=== PATIENT | male | born 1985 | race Caucasian/White ===

== ENCOUNTER 2019-01-12 19:35 | Emergency (ER) | payer OTHER ==
--- NOTE | 2019-01-12 20:06 | ED Physician Documentation ---
History of Present Illness - Stated complaint Stated Complaint: HEAD INJ/BASEBALL - Chief complaint Chief Complaint: Trauma Hd/Nk - History obtained from History obtained from: Patient, Family - History of Present Illness Timing: Prior to arrival - Additonal information Additional information: Patient is an otherwise healthy 33-year-old male presenting with his after he was accidentely struck in the head while playing softball earlier tonight. Patient was on first base and was struck by the runner. He was not wearing a helmet. Questionable loss of consciousness. Since that time, patient has complained of a headache and has otherwise been confused, amnestic to certain details, and repetitive in his questioning. Patient and deny vision burnette ges, epistaxis, intraoral trauma, neck pain, back pain, nausea, vomiting, extremity pain or injury, or other complaints. Prior to this incident, patient was at his usual state of health and without complaint. No other improving or worsening factors noted. Review of Systems Eyes: denies: Loss of vision Throat: denies: Dental pain / toothache Musculoskeletal: denies: Neck pain, Back pain Neurologic: reports: Head injury PD PAST MEDICAL HISTORY - Past Medical History Past Medical History: Yes GI: Hiatal hernia - Past Surgical History Past Surgical History: Yes - Allergies Allergies/Adverse Reactions: Allergies Allergy/AdvReac Type Severity Reaction Status Date / Time No Known Drug Allergies Allergy Verified 01/12/19 19:44 - Social History Does the pt smoke?: No Smoking Status: Never smoker Does the pt drink ETOH?: No Does the pt have substance abuse?: No - Immunizations Immunizations are current?: Yes - POLST Patient has POLST: No PD ED PE NORMAL - Vitals Vital signs reviewed: Yes - General General: Alert and oriented X 3, No acute distress, Well developed/nourished - HEENT HEENT: Atraumatic (No periorbital swelling or ecchymosis, active epistaxis, ev idence of intraoral trauma, raccoon eyes, chapman signs, facial bone instability or tenderness, contusions.), PERRL, EOMI (No nystagmus. Gross visual acuity intact.), Pharynx benign, Dentition benign - Neck Neck: No bony TTP - Cardiac Cardiac: RRR, No murmur - Respiratory Respiratory: No respiratory distress, Clear bilaterally - Abdomen Abdomen: Normal bowel sounds, Soft, Non tender, Non distended - Back Back: No spinal TTP - Derm Derm: Normal color, Warm and dry, No rash - Extremities Extremities: No deformity, No tenderness to palpate, No edema - Neuro Neuro: Alert and oriented X 3, No motor deficit, No sensory deficit - Psych Psych: Normal mood, Normal affect Results - Vitals Vitals: Vital Signs - 24 hr 01/12/19 01/12/19 19:39 21:26 Temperature 36.9 C 36.9 C Heart Rate 84 75 Respiratory 18 15 Rate Blood Pressure 125/77 132/83 H O2 Saturation 96 99 Oxygen O2 Source Room air PD MEDICAL DECISION MAKING - ED course Complexity details: reviewed results, re-evaluated patient, considered differential, d/w patient, d/w family ED course: Most concerning for closed head injury and concussion, but also considered skull fracture, intracranial injury or bleeding, facial fracture, although feel less likely. Physical exam is relatively unremarkable and do not find evidence of significant neurological deficit, trauma, or systemic illness. Have low suspici on for vertebral spinal cord injury, as well as any chest, abdominal, or other extremity trauma. Further evaluation limited to CT head and max/face, which returned unremarkable for acute pathology. Discussed results and recommendations with patient and his including concussion precautions and restrictions, return precautions, supportive cares, appropriate follow-up. Both voiced understanding and are comfortable with discharge plan. Departure - Departure Disposition: 01 Home, Self Care Clinical Impression: Concussion Condition: Good Instructions: ED Concussion, ED Head Injury Closed Follow-Up: JENNIFER LOZANO [Primary Care Provider] - Within 3 Days Comments: May use ibuprofen/Tylenol as needed for pain relief. Please apply ice to any areas of swelling. Please follow instructions and restrictions regarding concussion and closed head injury including establishing follow-up with your primary care physician in the next 2 to 3 days for reevaluation and hopefully approval to return to full activity. Return to the ED sooner if experience any further concerns or symptoms. Discharge Date/Time: 01/12/19 21:47
[2019-01-12 21:27] VITALS: BP 132/83
--- NOTE | 2019-01-12 21:30 | CT Report ---
Reason: struck in head while playing baseball Procedure Date: 01/12/2019 Accession Number: [id number] / [id number] Procedure: CT - HEAD WO CPT Code: FULL RESULT: EXAM: CT HEAD WITHOUT CONTRAST. EXAM DATE: 01/12/2019 09:02 PM. CLINICAL HISTORY: 33-year-old struck in head while playing baseball. Evaluate for intracranial pathology. COMPARISON: FACIAL BONES W/O 01/12/2019 8:58 PM. TECHNIQUE: Multiaxial CT images were obtained from the foramen magnum to the vertex. Reformats: Sagittal and coronal. IV contrast: None. In accordance with CT protocol optimization, one or more of the following dose reduction techniques were utilized for this exam: automated exposure control, adjustment of mA and/or KV based on patient size, or use of iterative reconstructive technique. FINDINGS: Parenchyma: No intraparenchymal hemorrhage. No evidence of mass, midline shift, or CT findings of infarction. Duque-white differentiation is distinct. Extraaxial Spaces: Normal for age. No subdural or epidural collections identified. Ventricles: Normal in size and position. Sinuses and Orbits: The orbits appear normal. There is mild mucosal thickening of the right maxillary sinus with moderate mucosal thickening of the left maxillary sinus. Mastoid air cells and middle ear cavities appear clear. Bones: No evidence of fracture or calvarial defect. Other: None. IMPRESSION: 1. No definite acute intracranial pathology seen; specifically, no acute infarct, acute intracranial hemorrhage, mass, hydrocephalus, or midline shift. 2. No definite calvarial fracture. RADIA
--- NOTE | 2019-01-12 21:35 | CT Report ---
Reason: struck in head while playing baseball Procedure Date: 01/12/2019 Accession Number: [id number] / [id number] Procedure: CT - MAXILLOFACIAL WO CPT Code: FULL RESULT: EXAM: CT MAXILLOFACIAL WITHOUT CONTRAST EXAM DATE: 01/12/2019 09:02 PM. CLINICAL HISTORY: 33-year-old struck in head while playing baseball. Evaluate for facial pathology. COMPARISONS: None. TECHNIQUE: Thin-section axial images were acquired of the face without contrast. Post-processing: Coronal and sagittal reformats. Other: None. In accordance with CT protocol optimization, one or more of the following dose reduction techniques were utilized for this exam: automated exposure control, adjustment of mA and/or KV based on patient size, or use of iterative reconstructive technique. FINDINGS: Soft Tissue: The infratemporal fossa and parapharyngeal spaces are unremarkable. Orbits: Symmetric and unremarkable. Bones: No fracture or bone lesion. Temporomandibular Joints: The temporomandibular joints are symmetric and normally located. Sinuses: Mild right and moderate left maxillary mucosal thickening of the maxillary sinuses. There is moderate mucosal thickening of the anterior ethmoid air cells with minimal to mild mucosal thickening of the frontal sinuses. Mastoid air cells and moderate cavities are clear. Other: There is leftward bowing of the bony nasal septum with leftward projecting bony nasal spur that contacts the inferior left turbinate. IMPRESSION: 1. No definite facial bone fracture seen. RADIA
== END 2019-01-12 21:47 | disposition home or self-care (01) ==
LOC: ED 19:35
DX: S06.0X0A Concussion without loss of consciousness, initial encounter (principal); W50.0XXA Accidental hit or strike by another person, initial encounter; Y93.64 Activity, baseball; Y92.320 Baseball field as the place of occurrence of the external cause
CPT/HCPCS: 70450; 70486; 99283

== ENCOUNTER 2020-09-30 11:48 | Emergency (ER) | payer OTHER ==
[2020-09-30 12:26] LABS: BASOPHILS # (AUTO) 0.1 10^3/uL (0.0-0.1); EOSINOPHILS # (AUTO) 0.2 10^3/uL (0.0-0.7); HGB - HEMOGLOBIN 14.4 g/dL (14.0-18.0); LYMPHOCYTES # (AUTO) 1.6 10^3/uL (1.5-3.5); MEAN CORPUSCULAR HEMOGLOBIN 28.7 pg (27.0-31.0); MEAN CORPUSCULAR HGB CONC 33.9 g/dL (32.0-36.0); MEAN CORPUSCULAR VOLUME 84.7 fL (80.0-94.0); MEAN PLATELET VOLUME 10.1 fL (7.4-11.4); MONOCYTES # (AUTO) 0.4 10^3/uL (0.0-1.0); MONOCYTES % (AUTO) 7.5 %; NEUTROPHILS # (AUTO) 2.6 10^3/uL (1.5-6.6); NEUTROPHILS % (AUTO) 53.3 %; PLT - PLATELET COUNT 251 10^3/uL (130-450); RED BLOOD COUNT 5.02 10^6/uL (4.70-6.10); RED CELL DISTRIBUTION WIDTH 13.1 % (12.0-15.0); WHITE BLOOD COUNT 4.8 x10^3/uL (4.8-10.8)
[2020-09-30 12:37] LABS: ALBUMIN 4.6 g/dL (3.2-5.5); ALBUMIN/GLOBULIN RATIO 1.3 (1.0-2.2); BILIRUBIN,TOTAL 0.8 mg/dL (0.2-1.0); CALCIUM 9.4 mg/dL (8.5-10.3); CREATININE 0.9 mg/dL (0.6-1.2); TOTAL PROTEIN 8.1 g/dL (6.7-8.2)
--- NOTE | 2020-09-30 12:46 | ED Physician Documentation ---
History of Present Illness - Stated complaint Stated Complaint: RT SIDE PX - Chief complaint Chief Complaint: Abd Pain - History obtained from History obtained from: Patient - History of Present Illness Timing: Yesterday Pain level max: 7 Pain level now: 6 - Additonal information Additional information: Patient is a 35-year-old male who presents to the emergency department stating that he has right upper quadrant abdominal pain. This is been ongoing for the past 24 hours. Worse with eating and drinking, nothing makes it better. Went to the walk-in clinic this morning and was sent here for evaluation. No fevers. No chills. No nausea or vomiting. No diarrhea or cough patient. Has never had similar symptoms. no urinary symptoms Review of Systems Ten Systems: 10 systems reviewed and negative Constitutional: denies: Fever, Chills Throat: denies: Sore throat Respiratory: denies: Cough GI: denies: Nausea, Vomiting, Diarrhea Skin: denies: Rash Musculoskeletal: denies: Neck pain, Back pain Neurologic: denies: Headache PD PAST MEDICAL HISTORY - Past Medical History Past Medical History: Yes GI: Hiatal hernia - Past Surgical History Past Surgical History: Yes - Present Medications Home Medications: Ambulatory Orders Medication Instructions Recorded Confirmed Meloxicam [Mobic] 7.5 mg PO BID PRN #20 tab 09/30/20 - Allergies Allergies/Adverse Reactions: Allergies Allergy/AdvReac Type Severity Reaction Status Date / Time No Known Drug Allergies Allergy Verified 09/30/20 11:52 - Social History Does the pt smoke?: No Smoking Status: Never smoker Does the pt drink ETOH?: No Does the pt have substance abuse?: No - Immunizations Immunizations are current?: Yes - POLST Patient has POLST: No PD ED PE NORMAL - Vitals Vital signs reviewed: Yes - General General: Alert and oriented X 3, No acute distress - HEENT HEENT: Moist mucous membranes - Neck Neck: Supple, no meningeal sign - Cardiac Cardiac: RRR, Strong equal pulses - Respiratory Respiratory: No respiratory distress, Clear bilaterally - Abdomen Abdomen: Soft, Non distended, Other (Tender to palpation right upper quadrant. Positive Diego sign) - Back Back: No CVA TTP, No spinal TTP - Derm Derm: Warm and dry - Extremities Extremities: No edema, No calf tenderness / cord - Neuro Neuro: Alert and oriented X 3 Results - Vitals Vitals: Vital Signs - 24 hr 09/30/20 09/30/20 09/30/20 11:53 13:56 16:25 Temperature 37.0 C Heart Rate 82 55 L 54 L Respiratory 19 16 18 Rate Blood Pressure 141/69 H 122/71 116/82 H O2 Saturation 97 99 98 Oxygen O2 Source Room air - Labs Labs: Laboratory Tests 09/30/20 09/30/20 09/30/20 12:09 12:09 13:00 WBC 4.8 RBC 5.02 Hgb 14.4 Hct 42.5 MCV 84.7 MCH 28.7 MCHC 33.9 RDW 13.1 Plt Count 251 MPV 10.1 Neut # (Auto) 2.6 Lymph # (Auto) 1.6 [place] # (Auto) 0.4 Eos # (Auto) 0.2 Baso # (Auto) 0.1 Absolute Nucleated RBC 0.00 Nucleated RBC % 0.0 Sodium 136 Potassium 4.3 Chloride 102 Carbon Dioxide 24 Anion Gap 10.0 BUN 16 Creatinine 0.9 Estimated GFR (MDRD) 97 Glucose 101 H Calcium 9.4 Total Bilirubin 0.8 AST 30 ALT 56 Alkaline Phosphatase 67 Total Protein 8.1 Albumin 4.6 Globulin 3.5 Albumin/Globulin Ratio 1.3 Lipase 26 Urine Color YELLOW Urine Clarity CLEAR Urine pH 6.0 Ur Specific [place] 1.025 Urine Protein NEGATIVE Urine Glucose (UA) NEGATIVE Urine Ketones NEGATIVE Urine Occult Blood NEGATIVE Urine Nitrite NEGATIVE Urine Bilirubin NEGATIVE Urine Urobilinogen 0.2 (NORMAL) Ur Leukocyte Esterase NEGATIVE Ur Microscopic Review NOT INDICATED Urine Culture Comments NOT INDICATED - Rads (name of study) RUQ US Radiology: Prelim report reviewed, EMP read contemporaneously, See rad report CT abd.pelvis Radiology: Prelim report reviewed, EMP read contemporaneously, See rad report PD MEDICAL DECISION MAKING - ED course Complexity details: reviewed results, re-evaluated patient, considered differential, d/w patient ED course: 35-year-old male with right flank pain, unclear etiology. No significant findings on CT scan, ultrasound. Given a dose of Toradol. Possible musculoskeletal pain? The pain is up near the lower aspect of the right ribs. No evidence of PE. No calf pain or edema. No recent surgery. We will trial on conservative therapy and have him follow-up with his doctor. Patient counseled regarding signs and symptoms for which I believe and urgent re-evaluation would be necessary. Patient with good understanding of and agreement to plan and is comfortable going home at this time This document was made in part using voice recognition software. While efforts are made to proofread this document, sound alike and grammatical errors may occur. CT Abd/pelvis IMPRESSION: 1. Mild hepatic steatosis. 2. Decompression of the terminal ileum without discrete focal inflammatory changes. 3. Nonvisualization of the appendix, possibly previously surgically removed. RUQ US: IMPRESSION: 1. Normal gallbladder. 2. Mild hepatic steatosis. 3. Benign morphology of right kidney cortical scarring versus angiomyolipoma. 4. Preliminary results given by the short haul driver to the emergency room provider. Departure - Departure Disposition: Home, Self Care Clinical Impression: Flank pain Condition: Good Instructions: ED Abdominal Pain Unkn Cause Follow-Up: DILCIA PONCE MD [Primary Care Provider] - Within 1 week Prescriptions: Meloxicam [Mobic] 7.5 mg PO BID PRN #20 tab PRN Reason: Pain Comments: The cause of your symptoms is unclear today. Your ultrasound, blood work and CT scan did not reveal any acute abnormalities. You do have a fatty liver. Follow-up with your doctor for further care. Return if you worsen. Discharge Date/Time: 09/30/20 16:33
[2020-09-30 13:25] LABS: BILIRUBIN,URINE NEGATIVE (NEGATIVE); GLUCOSE, URINE (UA) NEGATIVE (NEGATIVE); KETONES,URINE (UA) NEGATIVE (NEGATIVE); LEUKOCYTE ESTERASE, URINE NEGATIVE (NEGATIVE); NITRITE,URINE NEGATIVE (NEGATIVE); OCCULT BLOOD,URINE NEGATIVE (NEGATIVE); PROTEIN,URINE NEGATIVE (NEGATIVE); UROBILINOGEN,URINE 0.2 (NORMAL) E.U./dL (NORMAL)
[2020-09-30 13:36] LABS: CLARITY,URINE CLEAR (CLEAR)
--- NOTE | 2020-09-30 14:33 | Ultrasound Report ---
PROCEDURE: Abdomen Limited INDICATIONS: RUQ abd pain TECHNIQUE: Real-time focused scanning was performed of the abdomen, with image documentation. COMPARISON: None FINDINGS: The liver is minimally enlarged measuring 18.5 cm in length. The margin is smooth. The ech otexture is mildly heterogeneous and hyperechoic. There is relative hypoechogenicity in the gallbladd er fossa. No discrete mass. No intra or extrahepatic biliary dilatation. The common duct is 4.3 mm. The gallbladder is normal without stones, sludge, wall thickening, pericholecystic fluid, or sonograp hic Diego sign. The visible portions of the pancreas are normal without ductal dilatation. The right kidney measures 12.5 cm in length. The margin is slightly lobulated, potentially scarring versus scattered subcentime ters angiomyolipomas, particularly in the lower pole. No hydronephrosis or shadowing calculus. No radha e fluid in the right upper quadrant. IMPRESSION: 1. Normal gallbladder. 2. Mild hepatic steatosis. 3. Benign morphology of right kidney cortical scarring versus angiomyolipoma. 4. Preliminary results given by the payable processor to the emergency room provider. Reviewed by: Cecilia Main MD on 09/30/2020 1:32 PM [facility] Approved by: Cecilia Main MD on 09/30/2020 1:32 PM [facility] Station ID: [id number]
[2020-09-30] MEDS ORDERED: IOVERSOL 320 100 ML VIAL IVP ONE ×2 (14:34→15:44)
--- NOTE | 2020-09-30 15:35 | CT Report ---
PROCEDURE: Abdomen/Pelvis W INDICATIONS: R sided abd pain CONTRAST: IV CONTRAST: Optiray 320 ml: 100 PO CONTRAST: *NO PO CONTRAST TECHNIQUE: After the administration of IV contrast, 5 mm thick sections acquired from the diaphragms to the symp hysis. 5 mm thick coronal and sagittal reformats were acquired. For radiation dose reduction, the f ollowing was used: automated exposure control, adjustment of mA and/or kV according to patient size. COMPARISON: None. Correlation is made to ultrasound performed the same day. FINDINGS: Image quality: Excellent. ABDOMEN: Lung bases: Lung bases are clear. Heart size is normal. Solid organs: Mild hepatomegaly and hepatic steatosis. Liver and spleen are otherwise normal in size and enhancement. Gallbladder has a normal CT appearance without pericholecystic inflammation. Bili jorgito system is non dilated. Pancreas enhances normally. No adrenal nodules. Kidneys demonstrate nor mal size and enhancement, without hydronephrosis. Both kidneys demonstrate a smoothly lobulated cont our and there is a miniscule cortical cyst associated with the left lower pole. Peritoneum and bowel: The terminal ileum is decompressed and mildly hyperenhancing without surroundin g inflammatory changes. The appendix is not visible. Bowel loops otherwise demonstrate normal wall th ickness and caliber. No free fluid or air. Nodes and vessels: No retroperitoneal or mesenteric adenopathy by size criteria. Aorta and inferior vena cava are normal in size. Miscellaneous: No ventral hernias. Possible prior ventral hernia repair. PELVIS: Genitourinary: Bladder wall thickness is normal. Normal prostate gland. Miscellaneous: No inguinal hernias or adenopathy. Bones: No suspicious bony lesions. No vertebral body compression fractures. IMPRESSION: 1. Mild hepatic steatosis. 2. Decompression of the terminal ileum without discrete focal inflammatory changes. 3. Nonvisualization of the appendix, possibly previously surgically removed. Reviewed by: Cecilia Main MD on 09/30/2020 2:33 PM [facility] Approved by: Cecilia Main MD on 09/30/2020 2:33 PM [facility] Station ID: [id number]
[2020-09-30] MEDS ORDERED: KETOROLAC 30 MG/ML VIAL IVP STA (16:21)
[2020-09-30 16:25] VITALS: BP 116/82
== END 2020-09-30 16:33 | disposition home or self-care (01) ==
LOC: ED 11:48
DX: R10.11 Right upper quadrant pain (principal); K76.0 Fatty (change of) liver, not elsewhere classified
CPT/HCPCS: 36415; 74177; 76705; 80053; 81003; 83690; 85025; 96374; 99284; Q9967; 81001; 87086

== ENCOUNTER 2021-04-30 09:17 | Outpatient (CLI) | payer OTHER ==
--- NOTE | 2021-04-30 10:49 | MRI Report ---
PROCEDURE: Lumbar Spine W/O INDICATIONS: LOW BACK PAIN TECHNIQUE: Noncontrast sagittal T1 spin echo and T2 fast echo, sagittal STIR, axial T1 and T2 fast spin echo thr ough the lumbar spine. In cases with scoliosis, additional coronal T2 fast spin echo may be performe d. COMPARISON: Correlation is made with prior abdomen pelvis CT, 09/20/2020. FINDINGS: Image quality: Diagnostic, with note made of motion artifact. Alignment and Curvature: There is normal bony alignment. Bone Marrow: Marrow is of normal overall signal. No acute vertebral body compression fractures. Spinal Cord: Conus medullaris terminates at the L1 level. Visualized cord demonstrates normal signa l and size. Paraspinous Soft Tissues: No paravertebral masses. T12-L1: Normal in appearance. L1-L2: Normal in appearance. L2-L3: Normal in appearance. L3-L4: Normal in appearance. L4-L5: Normal in appearance. L5-S1: Normal in appearance. IMPRESSION: Normal. Reviewed by: Rj Isabel MD on 04/30/2021 9:47 AM [facility] Approved by: Rj Isabel MD on 04/30/2021 9:47 AM [facility] Station ID: [id number]
== END 2021-04-30 09:18 | disposition home or self-care (01) ==
LOC: DI 09:17
PROVIDERS: ATTEND Family Medicine
DX: M54.5 Low back pain (principal)

== ENCOUNTER 2021-06-25 07:50 | Outpatient (CLI) | payer OTHER | END 2021-06-25 23:59 | disposition home or self-care (01) | LOC: LAB.N 07:50 | PROVIDERS: ATTEND Family Medicine | DX: Z20.822 Contact with and (suspected) exposure to COVID-19 (principal) ==

== ENCOUNTER 2021-07-14 09:59 | Outpatient (CLI) | payer OTHER ==
--- NOTE | 2021-07-14 16:26 | XRAY Report ---
PROCEDURE: Ankle 3 View RT INDICATIONS: SPRAIN OF R ANKLE TECHNIQUE: 3 views of the ankle were acquired. COMPARISON: None FINDINGS: Bones: There is a nondisplaced lucency at the distal tip of the medial malleolus. Ankle mortise is no rmally aligned. No suspicious bony lesions. Soft tissues: Minimal lateral malleolar edema. Achilles tendon appears normal. IMPRESSION: Nondisplaced fracture of the distal medial malleolus. Reviewed by: Nat Donaldson MD on 07/14/2021 4:24 PM PST Approved by: Nat Donaldson MD on 07/14/2021 4:24 PM [facility] Station ID: [id number]
== END 2021-07-14 23:59 | disposition home or self-care (01) ==
LOC: DI.N 09:59
PROVIDERS: ATTEND Physician Assistant Medical
DX: S82.54XA Nondisplaced fracture of medial malleolus of right tibia, initial encounter for closed fracture (principal)

== ENCOUNTER 2023-07-26 12:54 | Outpatient (CLI) | payer OTHER ==
--- NOTE | 2023-07-26 13:52 | SLEEP CARE CONSULTATION ---
Information from patient questionnaire entered by Sharmin Barrios. I have reviewed and concur with the information entered by Sharmin Barrios. This document represents the service I personally performed and the decisions made by me, Gerardo Hernández MD, [facility]. History of Present Illness Service Date and Time: 07/26/2023 1254 Reason for Visit: New patient Chief Complaint: reports: Insomnia, Unrefreshed sleep, Snoring, Excessive daytime sleepiness, Observed pauses in breathing, Fatigue, Frequent awakenings at night Date of Onset: 20+YRS Usual bedtime: 8PM Time it takes to fall asleep: 30MIN Snores at night: Yes Observed to quit breathing while asleep: Yes Sleeps alone due to snoring: Yes Number of times waking at night: 2-4 Reasons for waking at night: reports: Snoring, Gasping for air, Other (UNKNOWN REASONS) Toss, Turn, or Twitch while sleeping: Yes Recalls having dreams: No Usually gets out of bed at: 5AM Feels refreshed in the morning: No Morning headache: Yes (SOMETIMES AFTER MEDICINE) Sleepy or fatigued during the day: Yes Ever fallen asleep while driving: Yes Takes day naps: No Dreams during day naps: No Prior sleep studies: No Additional HPI information: I had the pleasure of seeing Mr. Leiva today regarding the possibility of him having a sleep disorder. As you know, he is a 37-year-old gentleman who complains of insomnia, frequent awakenings, loud snore, observed apneas, unrefreshed sleep, and excessive daytime sleepiness for the past several years. The patient tells me that he normally goes to bed around 8 pm, and it takes him approximately an hour to fall asleep. He has been told that he snores loudly and irregularly at night. He has also been observed to stop breathing in his sleep. His can still sleep in the same bed. He can recall waking up on the average of 2 - 4 times during the night. Most of the time he wakes up because of his own snoring, choking, and having to gasp for air. There is a lot of tossing and turning in his sleep. He has somniloquy (sleep talking) and somnambulism (sleep walking). Generally, there is no recollection of dreams. In the morning he usually gets up out of the bed around 5 a.m. not feeling refre shed nor rested. He usually has a morning headache that goes away after taking Tylenol. During the day he complains of feeling sleepy and fatigued. His score on [place] Sleepiness Scale is 22 out of 24. He has fallen asleep while driving and has gone out of the brissa. He usually does not take naps during the day. He reports having impaired concentration during the day. 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 Patient is and lives in [place]. Have you smoked in the past 12 months: No Years of smokin Quit date: 2020 Alcohol use: Yes Alcohol amount and frequency: 1 BEER A MONTH Caffeine use: Yes Caffeine amount and frequency: COFFEE 2 CUPS DAILY Family History Family history of sleep disordered breathing: Yes Family Hx Sleep Apnea: Mother: Snoring, Sleep apnea - Treated, Grandparent: Snoring, Sleep apnea - Treated Allergies and Home Medications Known drug allergies: No Drug allergies reviewed: Yes Home medication list reviewed: Yes Allergy and home medication list: Allergies No Known Drug Allergies Allergy (Verified 09/30/20 11:52) Review of Systems Review of systems same as previous: Yes Weight gain over past 5 years: 25+ Cardiovascular: reports: high blood pressure Respiratory: denies: shortness of breath, wheeze, sputum production, chronic cough, other Gastrointestinal: reports: heartburn, diarrhea, abdominal pain Urinary: denies: incontinence, frequency, urgency, impotence, other Neurological: reports: headaches, head trauma Psychiatric: reports: anxiety, depression, mood disorder Ear/Nose/Throat: reports: nasal congestion, sinus problems, nose bleeds, dry mouth/throat, injury to nose, wisdom teeth removed Endocrine: reports: excessive thirst Musculoskeletal: reports: joint pain, neck pain, back pain, muscle pain or cramping Immunologic: denies: sneezing, rash, itching, allergies to food or environment, other Physical Exam Vital signs obtained and entered by: SHARMIN Delvalle MA Blood Pressure: 135/80 (LEFT ARM) Cuff size: regular Heart Rate: 92 O2 Saturation: 95 Height: 6 ft Weight: 285 lb 9.6 oz Body Mass Index: 38.7 BMI Classification: Obese Neck circumference: 18 Mood/affect: Normal HEENT: No craniofacial malformation Nostrils: partially obstructed Turbinates: normal Septum: deviated left Mouth and throat: narrow oropharynx Soft palate: long Hard palate: normal Uvula: normal Uvula visualization: 50% Mallampati Class II Tongue: normal in size Tonsils: small Chin and jaw: normal size and position Neck: normal w/o lymphadenopathy or thyromegaly Heart: regular rate and rhythm Lungs: clear bilaterally Extremities: no edema or clubbing Neurologic: intact Impression and Plan IMPRESSION: 1. Obstructive Sleep Apnea-Hypopnea Syndrome, as suggested by history of loud and irregular snoring, observed cessation of breath while asleep, frequent awakenings during the night, nocturnal choking, unrefreshed sleep, morning headache, cognitive impairment, and daytime hypersomnolence. Narrow oropharynx and obesity are common predisposing factors for obstructive sleep apnea-hypopnea syndrome. I recommend proceeding to polysomnography to confirm the diagnosis and to assess severity. If he has significant sleep disordered breathing, a manual CPAP titration study will also be performed to find the optimal treatment pressure. I informed the patient of what the sleep studies involve and after some discussion, he agreed to proceed. Plan: 1. Schedule polysomnography + manual CPAP titration study 2. Avoid long distance driving or when feeling sleepy. 3. Avoid alcohol, sedative and muscle relaxant around bedtime. 4. Attempt to lose weight. 5. Return for follow up after the sleep studies. Follow up with Sleep Care in: 1-2 months Follow up recommended for: Weight management Visit Type: In Office Time Spent with Patient (minutes): 15 Provider Statement: I spent 100% of the Face to Face Visit with the patient with greater than 50% spent counseling the patient and coordination of care.
[2023-07-26 13:56] VITALS: BP 135/80; O2SAT 95
== END 2023-07-26 12:55 | disposition home or self-care (01) ==
LOC: SC 12:54
PROVIDERS: ATTEND Internal Medicine Pulmonary Disease
DX: R06.83 Snoring (principal); R06.81 Apnea, not elsewhere classified; G47.8 Other sleep disorders; R51.9 Headache, unspecified; G47.10 Hypersomnia, unspecified; I10 Essential (primary) hypertension; E66.9 Obesity, unspecified; Z68.38 Body mass index [BMI] 38.0-38.9, adult; Z87.891 Personal history of nicotine dependence
CPT/HCPCS: 99202; 99212

== ENCOUNTER 2023-08-16 19:30 | Outpatient (CLI) | payer OTHER | END 2023-08-16 19:31 | disposition home or self-care (01) | LOC: SC 19:30 | PROVIDERS: ATTEND Internal Medicine Pulmonary Disease | DX: G47.61 Periodic limb movement disorder (principal) | CPT/HCPCS: 95810 ==

== ENCOUNTER 2023-09-20 11:30 | Outpatient (CLI) | payer OTHER ==
--- NOTE | 2023-09-20 22:31 | SLEEP CARE CONSULTATION ---
Information from patient questionnaire entered by Rehana Barrios. I have reviewed and concur with the information entered by Rehana Barrios. This document represents the service I personally performed and the decisions made by me, Gerardo Hernández MD, [facility]. History of Present Illness Service Date and Time: 09/20/2023 1130 Initial [place] Sleepiness Scale score: 22 (06/23/23) Current [place] Sleepiness Scale score: 22 (09/20/23) Additional HPI information: Mr. Leiva was seen via video telemedicine ([facility] [employer]) for follow up of the sleep study he had on 08/16/2023. The polysomnography showed that the patient had minimally reduced sleep efficiency. The sleep architecture was relatively normal considering the first-night effect. Respiratory monitoring showed no significant sleep disordered breathing (AHI = 1.4) or hypoxia (mihai oxygen saturation of 89 %). The patient slept adequately in supine position (supine AHI = 2.0; non- supine = 1.19). Snore was infrequent and light in intensity. There was moderate periodic leg movement of sleep not associated with sleep fragmentation. Cardiac rhythm was normal sinus rhythm without significant arrhythmia. No abnormal behavior (parasomnia) observed during the night. The patient was informed of these findings. I explained to him that he had moderate periodic leg movement of sleep that did not disrupt sleep. The patient denies have any leg discomfort. Sleep Study - Results Type of Sleep Study: Polysomnography (COMPLETED 08/16/23) Prior sleep studies: No Allergies and Home Medications Drug allergies reviewed: Yes Home medication list reviewed: Yes Allergy and home medication list: Allergies No Known Drug Allergies Allergy (Verified 09/17/23 09:52) Review of Systems Review of systems same as previous: Yes Physical Exam Vital signs obtained and entered by: REHANA Delvalle MA Height: 6 ft 1 in (PER PT) Weight: 260 lb (PER PT) Body Mass Index: 34.2 BMI Classification: Obese Impression and Plan IMPRESSION: 1. Periodic leg movement of sleep, moderate, but no restless leg syndrome. The cause of periodic leg movement of sleep is typically unknown. A few known causes are iron deficiency, renal failure, and selective serotonin reuptake inhibitors. Iron and ferritin levels are recommended in addition to the routine blood work. Treatment is not necessary at this time. PLAN: 1. Return to the sleep clinic on as needed basis. Follow up with Sleep Care in: as needed Visit Type: Telehealth Video Video Type: Doximity Patient Location: Home Location of Provider: Office Patient agrees and consents to this telehealth visit type: Yes Patient agrees to have their insurance billed: Yes Time Spent with Patient (minutes): 15 Provider Statement: I spent 100% of the Telehealth Video Call with the patient with greater than 50% spent counseling the patient and coordination of care.
== END 2023-09-20 11:31 | disposition home or self-care (01) ==
LOC: SC 11:30
PROVIDERS: ATTEND Internal Medicine Pulmonary Disease
DX: G47.61 Periodic limb movement disorder (principal); E66.9 Obesity, unspecified; Z68.34 Body mass index [BMI] 34.0-34.9, adult